=== PATIENT | male | born 1980 | race Caucasian/White ===

== ENCOUNTER 2024-08-20 13:23 | Emergency (ER) | payer MEDICAID ==
[~2024-08-20] VITALS: Ht 182.9 cm; Wt 70.8 kg
[2024-08-20 13:46] VITALS: TEMP 98.6
[2024-08-20] MEDS ORDERED: DOXY-224 PO (14:34)
[2024-08-20] MEDS ORDERED: HYDR-3965 PO (14:34)
[2024-08-20] MEDS: HYDROcodone/acetaminophen 10/325mg tab PO ONE (14:54)
[2024-08-20] MEDS: ketorolac trometh 15mg/ml vial 15 MG/ML ML IM ONE (14:55)
[2024-08-20] MEDS: LIDOcaine/epinephrine/tetracaine TOPICAL sol 3 ML syringe TOP ONE (14:55)
[2024-08-20 15:27] VITALS: BP 102/84; PULSE 96; RESP 16; O2SAT 100
== END 2024-08-20 15:33 | disposition home or self-care (01) ==
LOC: ER 13:24
DX: S41.152A Open bite of left upper arm, initial encounter (principal); Z88.5 Allergy status to narcotic agent; W54.0XXA Bitten by dog, initial encounter; Y93.89 Activity, other specified; Y92.89 Other specified places as the place of occurrence of the external cause; Y99.8 Other external cause status
CPT/HCPCS: 96372; 99283; J1885; J3490

== ENCOUNTER 2024-08-26 12:32 | Emergency (ER) | payer MEDICAID ==
[~2024-08-26] VITALS: Ht 185.4 cm; Wt 70.9 kg
[~2024-08-26 12:32] MED LIST: DOXY-224 PO; HYDR-3965 PO
[2024-08-26 12:33] VITALS: BP 140/116; PULSE 97; TEMP 98.4; O2SAT 99
[2024-08-26 12:59] LABS: BASOPHILS # (AUTO) 0.1 X10'3 (0-0.2); BASOPHILS % (AUTO) 0.7 % (0-1); EOSINOPHILS # (AUTO) 0.3 X10'3 (0-0.9); EOSINOPHILS % (AUTO) 3.9 % (0-6); HEMATOCRIT 47.2 % (42.0-52.0); HEMOGLOBIN 15.8 g/dl (14.0-17.9); LYMPHOCYTES # (AUTO) 1.4 X10'3 (1.1-4.8); LYMPHOCYTES % (AUTO) 18.9 % (21-51); MEAN CORPUSCULAR HEMOGLOBIN 32.6 PG (27.0-31.0); MEAN CORPUSCULAR HGB CONC 33.4 g/dL (33.0-36.5); MEAN CORPUSCULAR VOLUME 97.6 FL (78-98); MEAN PLATELET VOLUME 8.4 FL (7.4-10.4); MONOCYTES # (AUTO) 0.7 X10'3 (0-0.9); NEUTROPHILS # (AUTO) 4.9 X10'3 (1.8-7.7); NEUTROPHILS % (AUTO) 67.5 % (42-75); PLATELET COUNT 291 X10'3 (140-440); RED BLOOD COUNT 4.84 X10'6 (4.70-6.10); RED CELL DISTRIBUTION WIDTH 13.3 % (11.5-14.5); WHITE BLOOD COUNT 7.3 X10'3 (4.5-11.0)
[2024-08-26 13:06] LABS: BILIRUBIN,URINE NEGATIVE (Neg); CLARITY,URINE CLOUDY (Clear); COLOR,URINE YELLOW (Yellow); GLUCOSE, URINE NEGATIVE (Neg); KETONES,URINE NEGATIVE (Neg); LEUKOCYTE ESTERASE ,URINE NEGATIVE (Neg); NITRITES, URINE NEGATIVE (Neg); OCCULT BLOOD,URINE SMALL (Neg); PH,URINE 6.5 (4.8-8.0); PROTEIN,URINE 100 mg/dl (Neg)
[2024-08-26 13:28] LABS: UA COLLECTION TYPE CLN CATCH MIDSTREAM
[2024-08-26 13:31] LABS: ALANINE AMINOTRANSFERASE 251 U/L (12-78); ALBUMIN 3.8 G/DL (3.4-5.0); ALKALINE PHOSPHATASE 74 IU/L (46-116); ANION GAP 8 (8-16); ASPARTATE AMINO TRANSFERASE 145 U/L (10-37); BILIRUBIN,TOTAL 0.7 MG/DL (0.1-1.0); BLOOD UREA NITROGEN 14 MG/DL (7-18); BUN/CREATININE RATIO 16.7 (10.0-20.0); CALCIUM 9.2 MG/DL (8.5-10.1); CHLORIDE 105 MMOL/L (99-107); CREATININE 0.84 MG/DL (0.60-1.10); GLUCOSE 89 MG/DL (70-104); LIPASE 92 U/L (16-77); POTASSIUM 4.6 MMOL/L (3.5-5.1); SODIUM 144 MMOL/L (135-145); TOTAL CARBON DIOXIDE 31.2 MMOL/L (24-32); TOTAL PROTEIN 7.6 G/DL (6.4-8.2); eCRCL 114 ML/MIN; eGFR > 90 ML/MIN
[2024-08-26 13:37] LABS: AMORPHOUS PHOSPHATES 3+; BACTERIA,URINE FEW /HPF (Neg); SQUAMOUS EPITHELIAL CELL,UR NONE SEEN /LPF (FEW)
[2024-08-26] MEDS ORDERED: iohexol 300mg/ml 100ml inj. ONE (14:50)
[2024-08-26] MEDS: ondansetron/PF 4mg/2ml inj IV ONE (14:54)
[2024-08-26] MEDS: morphine 4 MG/ML inj SYRINge IV ONE (14:55)
[2024-08-26] MEDS: normal saline 1000ML IV soln IVB ONE (14:59)
--- NOTE | 2024-08-26 15:35 | RADIOLOGY REPORT ---
Exam: CT CT ABDOMEN PELVIS W/ IV CONTRAST History: abdominal pain with elevated alt >ast and lipase. alcoholism. Comparison Study: None available at time of dictation. Contrast: Type of contrast: Omni 300 Contrast injected: 100 mL Contrast wasted: 0 TECHNIQUE: A digital career guidance technician image was obtained. During the uneventful, intravenous administration of c ontrast material, multislice data acquisition was obtained through the abdomen and pelvis. The data s et was subsequently reconstructed into axial images. Images were reviewed on a work station using a c ombination of axial and multiplanar using a variety of window levels and settings. Radiation Dose Information: CT Dose: CTDI volume is 9.34 mGy. Dose-length product is 438.25 mGy*cm FINDINGS: Lung Bases: No acute or significant lung base finding. Normal heart size. No pleural or pericardial effusion. Liver: The liver is normal in size. No focal lesions. Normal hepatic vascular enhancement. Hepatic s teatosis Gallbladder and Biliary Tree: Unremarkable Spleen: Unremarkable Pancreas: The pancreas is normal in appearance without focal lesions or abnormal enhancement. Adrenal Glands: Unremarkable Kidneys: Kidneys demonstrate normal symmetric enhancement without focal lesions, calculi or hydroneph rosis. Bladder: Unremarkable Bowel: The stomach is grossly normal in appearance. Small bowel and colon are normal in caliber and d istribution. The appendix is not visualized; however, no secondary findings of acute appendicitis luisa ntified. Ascites: Absent Lymphadenopathy: No mesenteric, retroperitoneal or periportal lymphadenopathy. Abdominal Wall and Mesentery: Unremarkable. Vasculature: The visualized abdominal aorta is normal in size and caliber. Abdominal and pelvic vess els demonstrate normal enhancement. Pelvic Organs: Unremarkable Musculoskeletal: No aggressive focal bony lesions, acute fractures or dislocation. Soft tissues: Unremarkable. IMPRESSION: 1. Hepatic steatosis 2. No calcified gallstones 3. No nephrolithiasis or hydronephrosis 4. No CT findings of bowel obstruction All CT scans at this medical facility are performed using dose modulation techniques as appropriate t o a performed exam including the following: Automated exposure control was utilized; adjustment of th e MA and/or KV according to patient size; and use of iterative reconstruction technique. HS:Y
[2024-08-26] MEDS ORDERED: ONDA-103 PO (16:11)
[2024-08-26] MEDS ORDERED: PANT-47 PO (16:11)
--- NOTE | 2024-08-26 16:12 | Physician Documentation ---
History of Present Illness ~ Chief Complaint: Abdominal Pain w/vomiting Stated Complaint: ABD PAIN AND RASH Time Seen by MD: 13:51 OK to notify your PCP?: Yes Primary Medical Doctor: none Source: patient Mode of Arrival: POV Exam Limitations: no limitations HPI 43-year-old male with chief complaint abdominal pain that has in his epigastric area started this morning. States he has been trying to wean himself off of al cohol in his been cutting pack over the past week. Symptoms started after he was followed by the really hard. He thinks he might have decrease his alcohol too quickly. He has not had any hallucinations, delirium, seizures. Medication Reconciliation Allergies: Coded Allergies: meperidine (Unverified Allergy, Intermediate, CONOR INFLAMATION, 08/20/24) Scheduled Doxycycline Hyclate (Doxycycline Hyclate), 1 CAP PO Q12H Pantoprazole Sodium (PROTONIX tablet), 1 TAB PO DAILY Scheduled PRN Ondansetron HCl (Ondansetron HCl), 1 TAB PO Q6H PRN PRN for nausea/vomiting Discontinued Medications Hydrocodone Bit/Acetaminophen 5/325 MG (Paragon 5/325 MG), 1 TAB PO TID PRN PRN for pain Discontinued Reason: Auto Discontinued Past Medical History Smoking Status: Current every day smoker Review of Systems All Other Systems at this time: Reviewed and Negative Physical Exam Vital Signs: Temperature: 98.4, Source: Temporal, Heart Rate: 97, Respiratory Rate: 17, BP: 140/116, Pulse Oximetry: 99, Weight: 70.900 Physical Exam GENERAL: Alert, no acute distress. HEENT: NCAT, EOMI, PERRL, normal oropharynx, moist oral mucosa. NECK: Supple, trachea midline. CARDIAC: Regular rate and rhythm, no murmurs, rubs, or gallops. Equal distal p ulses. No lower extremity edema, cap refill less than 2 seconds. RESPIRATORY: Equal breath sounds, clear to auscultation bilaterally, no respiratory distress. GASTROINTESTINAL: Non distended, soft, EPIGASTRIC TTP, No guarding or rebound. MUSCULOSKELETAL: Normal range of motion, nontender, no swelling. Normal gait. NEUROLOGICAL: Awake, alert, and oriented x 3. SKIN: Warm/dry, no pallor, no rash. PSYCH: Alert and appropriate. Affect congruent with mood. Speech is clear. Good eye contact. Progress Results/Orders Results/Orders Orders - NYASIA ANAND Ct Abdomen Pelvis (08/26/24 14:17) Completed Orders - NYASIA ANAND Morphine 4mg/Ml Inj. (Morphine Inj.) (08/26/24 14:20) Ondansetron Inj. (Zofran 4mg/2ml Vial) (08/26/24 14:20) Normal Saline 1000ml (Sodium Chloride 10 (08/26/24 14:20) Ct Abdomen Pelvis (08/26/24 14:17) Iohexol 300mg/Ml 100ml Inj. (Omnipaque-3 (08/26/24 14:50) Hydrocodone/Apap 10/325 (Paragon 10/325mg (08/26/24 16:10) Medications Received in ER Medications (Trade) Dose Ordered Sig/Jose Route PRN Reason Start Time Stop Time Status Last Admin Dose Admin (morphine inj.) 6 mg ONCE ONCE IV 08/26/24 14:20 08/26/24 14:23 DC 08/26/24 14:55 6 MG (Zofran 4mg/2ml vial) 4 mg ONCE ONCE IV 08/26/24 14:20 08/26/24 14:23 DC 08/26/24 14:54 4 MG (sodium chloride 1000ml IV soln) 1,000 ml ONCE ONCE IVB 08/26/24 14:20 08/26/24 14:23 DC 08/26/24 14:59 1,000 ML (Paragon 10/325mg tab) 1 tab ONCE ONCE PO 08/26/24 16:10 08/26/24 16:11 DC 08/26/24 16:35 1 TAB Vital Signs 08/26/24 08/26/24 08/26/24 08/26/24 12:33 14:55 16:04 16:35 Temp 98.4 Pulse 97 Resp 15 17 18 16 B/P (MAP) 140/116 Pulse Ox 99 Laboratory Tests Test 08/26/24 12:38 08/26/24 12:51 Urine Specimen Description Cln catch midstream Urine Color Yellow Urine Clarity Cloudy Urine pH 6.5 Urine Specific Goldsmith 1.025 Urine Protein 100 H Urine Glucose (UA) Negative Urine Ketones Negative Urine Occult Blood Small Urine Nitrite Negative Urine Bilirubin Negative Urine Urobilinogen 1.0 Urine Leukocyte Esterase Negative Urine RBC 3-10 Urine WBC 5-10 H Urine Squamous Epithelial Cells None seen Urine Amorphous Phosphates 3+ Urine Bacteria Few Urine Culture Indicated Indicated Volume Urine Centrifuged 10 ml Urine Comment White Blood Count 7.3 Red Blood Count 4.84 Hemoglobin 15.8 Hematocrit 47.2 Mean Corpuscular Volume 97.6 Mean Corpuscular Hemoglobin 32.6 H Mean Corpuscular Hemoglobin Concent 33.4 Red Cell Distribution Width 13.3 Platelet Count 291 Mean Platelet Volume 8.4 Neutrophils (%) (Auto) 67.5 Lymphocytes (%) (Auto) 18.9 L Monocytes (%) (Auto) 9.0 Eosinophils (%) (Auto) 3.9 Basophils (%) (Auto) 0.7 Neutrophils # (Auto) 4.9 Lymphocytes # (Auto) 1.4 Monocytes # (Auto) 0.7 Eosinophils # (Auto) 0.3 Basophils # (Auto) 0.1 CBC Comment Sodium Level 144 Potassium Level 4.6 Chloride Level 105 Carbon Dioxide Level 31.2 Anion Gap 8 Blood Urea Nitrogen 14 Creatinine 0.84 Estimated GFR/1.73 m2 > 90 BUN/Creatinine Ratio 16.7 Glucose Level 89 Calcium Level 9.2 Total Bilirubin 0.7 Aspartate Amino Transf (AST/SGOT) 145 H Alanine Aminotransferase (ALT/SGPT) 251 H Alkaline Phosphatase 74 Total Protein 7.6 Albumin 3.8 Globulin 3.8 Albumin/Globulin Ratio 1.0 L Lipase 92 H Chemistry Comments Microbiology Date/Time Source Procedure Growth Status 08/26/24 13:38 Urine Clean Catch Midstream Urine Culture - Preliminary Culture received. Resulted Medical Decision Making Diff Dx Pain:Considerations: Include: AAA, Angina/AK, Aortic dissection, Appendicitis, Bowel obstruction, Cholangitis, Cholecystitis, Cholelithasis, Constipation, Diverticular disease, Esophageal rupture, Esophagitis, Gastritis, Gastroenteritis, GI hemorrhage, Hepatitis, Hernia, Inflammatory BD, Ischemic bowel, Mass, Pancreatitis, Porphyria, PUD, Testicular torsion, Trauma, intraabdominal, Urinary obstruction, Urinary tract infection, Urolithiasis Additional Comments NO EVIDENCE FOR PANCREATITIS ON IMAGING, PATIENT'S PAIN RESOLVED COMPLETELY AND WAS EATING LICORICE ROPES PRIOR TO DISCHARGE. Departure Time of Disposition: 18:53 Disposition: 01 HOME / SELF CARE / HOMELESS Impression: Primary Impression: Abdominal pain Qualified Codes: R10.13 - Epigastric pain Additional Impressions: Gastritis Qualified Codes: K29.00 - Acute gastritis without bleeding Alcoholism Condition: Stable Discharge Instructions: Abdominal Pain (Nonspecific) Additional Instructions: If worsening of pain return to the ER otherwise recommend follow up with your primary care provider for possible upper endoscopy to assess your stomach if the pain persists. If you have any new concerns such as chest pain, sob then return to ER Referrals: NO PRIMARY CARE PROVIDER (PCP) Prescriptions Ondansetron HCl (Ondansetron HCl) 4 Mg Tablet 1 TAB PO Q6H PRN PRN for nausea/vomiting, #10 TAB 0 Refills Prov: NYASIA ANAND 08/26/24 Pantoprazole Sodium (PROTONIX tablet) 40 Mg Tablet.dr 1 TAB PO DAILY for 30 Days, #30 TAB 0 Refills Prov: NYASIA ANAND 08/26/24 Education Educated: Patient Educated regarding: diagnosis, treatment, need for follow up Signature Scribe Signature: x Attestation: NYASIA Garcia Aug 26, 2024 16:12
[2024-08-26 16:35] VITALS: RESP 16
[2024-08-26] MEDS: HYDROcodone/acetaminophen 10/325mg tab PO ONE (16:35)
== END 2024-08-26 16:42 | disposition home or self-care (01) ==
LOC: ER 12:33
DX: K29.70 Gastritis, unspecified, without bleeding (principal); F17.200 Nicotine dependence, unspecified, uncomplicated; Z88.5 Allergy status to narcotic agent
CPT/HCPCS: 36415; 74177; 80053; 81001; 83690; 85025; 87088; 96361; 96374; 96375; 99285; J2270; J2405; J7030; Q9967

== ENCOUNTER 2024-09-16 17:20 | Emergency (ER) | payer MEDICAID ==
[~2024-09-16] VITALS: Ht 182.9 cm; Wt 72.3 kg
[~2024-09-16 17:20] MED LIST changes: -DOXY-224 PO; -HYDR-3965 PO; +ONDA-103 PO; +PANT-47 PO
[2024-09-16] MEDS: LORazepam 2 mg/ml vial IV ONE (18:26)
[2024-09-16] MEDS: diazepam 5mg tablet PO ONE ×2 (18:53→19:57)
[2024-09-16 19:22] LABS: BASOPHILS % (AUTO) 0.7 % (0-1); EOSINOPHILS # (AUTO) 0.2 X10'3 (0-0.9); EOSINOPHILS % (AUTO) 2.7 % (0-6); HEMATOCRIT 42.4 % (42.0-52.0); HEMOGLOBIN 14.4 g/dl (14.0-17.9); LYMPHOCYTES % (AUTO) 26.1 % (21-51); MEAN CORPUSCULAR HEMOGLOBIN 32.9 PG (27.0-31.0); MEAN CORPUSCULAR VOLUME 96.5 FL (78-98); MEAN PLATELET VOLUME 9.4 FL (7.4-10.4); MONOCYTES # (AUTO) 0.9 X10'3 (0-0.9); MONOCYTES % (AUTO) 11.3 % (2-12); NEUTROPHILS # (AUTO) 4.4 X10'3 (1.8-7.7); NEUTROPHILS % (AUTO) 59.2 % (42-75); PLATELET COUNT 292 X10'3 (140-440); RED BLOOD COUNT 4.39 X10'6 (4.70-6.10); RED CELL DISTRIBUTION WIDTH 13.5 % (11.5-14.5); WHITE BLOOD COUNT 7.5 X10'3 (4.5-11.0)
[2024-09-16 19:35] LABS: ALANINE AMINOTRANSFERASE 185 U/L (12-78); ALBUMIN 3.6 G/DL (3.4-5.0); ALKALINE PHOSPHATASE 69 IU/L (46-116); ANION GAP 11 (8-16); ASPARTATE AMINO TRANSFERASE 97 U/L (10-37); BILIRUBIN,TOTAL 0.6 MG/DL (0.1-1.0); BLOOD UREA NITROGEN 12 MG/DL (7-18); CALCIUM 9.2 MG/DL (8.5-10.1); CHLORIDE 104 MMOL/L (99-107); CREATININE 0.75 MG/DL (0.60-1.10); ETHANOL 70 MG/DL (<10); GLUCOSE 81 MG/DL (70-104); POTASSIUM 3.5 MMOL/L (3.5-5.1); SODIUM 142 MMOL/L (135-145); TOTAL CARBON DIOXIDE 26.6 MMOL/L (24-32); TOTAL PROTEIN 7.1 G/DL (6.4-8.2); eCRCL 130 ML/MIN; eGFR > 90 ML/MIN
--- NOTE | 2024-09-16 19:43 | Physician Documentation ---
History of Present Illness ~ Chief Complaint: ETOH Stated Complaint: DETOXING FROM ALCOHOL Time Seen by MD: 19:38 Primary Medical Doctor: none Mode of Arrival: Other HPI 43 year old male with long history of alcoholism, drinks approximately one fifth of hard alcohol per day for many years. Reports want to quit alcohol and wishing to do so at home. Denies seizure history. Reports nausea. Tetanus within 5 years?: No Medication Reconciliation Allergies: Coded Allergies: meperidine (Unverified Allergy, Intermediate, CONOR INFLAMATION, 08/20/24) Scheduled Pantoprazole Sodium (PROTONIX tablet), 1 TAB PO DAILY Scheduled PRN Ondansetron HCl (Ondansetron HCl), 1 TAB PO Q6H PRN PRN for nausea/vomiting Review of Systems All Other Systems at this time: Reviewed and Negative Physical Exam Vital Signs: RN Vital Signs have been reviewed: Yes, Temperature: 98.9, Source: Oral, Heart Rate: 107, Respiratory Rate: 14, BP: 151/101, Pulse Oximetry: 98, Weight: 72.300 Physical Exam HEENT: PERRL, moist oral mucosa, EOMI Pulmonary: No respiratory distress Cardiac: regular tachycardia, no murmur, rub or gallop MSK: no deformity Skin: w/d/i, no rash Neuro: alert, nonfocal Psych: normal affect Progress Results/Orders Results/Orders Completed Orders - WESTON OGDEN MD Diazepam Tablet (Valium Tablet) (09/16/24 18:45) Medications Received in ER Medications (Trade) Dose Ordered Sig/Jose Route PRN Reason Start Time Stop Time Status Last Admin Dose Admin (Ativan inj) 1 mg ONCE ONCE IV 09/16/24 17:55 09/16/24 17:59 DC 09/16/24 18:26 1 MG (Valium tablet) 10 mg ONCE ONCE PO 09/16/24 18:45 09/16/24 18:50 DC 09/16/24 18:53 10 MG Vital Signs 09/16/24 09/16/24 17:23 18:40 Temp 98.9 Pulse 107 Resp 18 14 B/P (MAP) 151/101 Pulse Ox 98 Laboratory Tests Test 09/16/24 17:45 White Blood Count 7.5 Red Blood Count 4.39 L Hemoglobin 14.4 Hematocrit 42.4 Mean Corpuscular Volume 96.5 Mean Corpuscular Hemoglobin 32.9 H Mean Corpuscular Hemoglobin Concent 34.0 Red Cell Distribution Width 13.5 Platelet Count 292 Mean Platelet Volume 9.4 Neutrophils (%) (Auto) 59.2 Lymphocytes (%) (Auto) 26.1 Monocytes (%) (Auto) 11.3 Eosinophils (%) (Auto) 2.7 Basophils (%) (Auto) 0.7 Neutrophils # (Auto) 4.4 Lymphocytes # (Auto) 2.0 Monocytes # (Auto) 0.9 Eosinophils # (Auto) 0.2 Basophils # (Auto) 0.0 CBC Comment Sodium Level 142 Potassium Level 3.5 Chloride Level 104 Carbon Dioxide Level 26.6 Anion Gap 11 Blood Urea Nitrogen 12 Creatinine 0.75 Estimated GFR/1.73 m2 > 90 BUN/Creatinine Ratio 16.0 Glucose Level 81 Calcium Level 9.2 Total Bilirubin 0.6 Aspartate Amino Transf (AST/SGOT) 97 H Alanine Aminotransferase (ALT/SGPT) 185 H Alkaline Phosphatase 69 Total Protein 7.1 Albumin 3.6 Globulin 3.5 Albumin/Globulin Ratio 1.0 L Chemistry Comments Ethyl Alcohol Level 70 H Medical Decision Making Findings 43 year old male with alcohol withdrawal syndrome. Long discussion regarding need for addiction medicine follow up and I will prescribe valium 10mg tablets and naltrexone to help him at home. Dose here and significant improvement in symptoms. Return precautions discussed. Differential Dx:Considerations: Include: Intoxication-Alcohol, Intoxication- Other drug, Personality disorder, Substance abuse disorder, Alcohol withdrawl syndrom, Encephalopathy, Hepatitis, Medically stable Departure Disposition: 01 HOME / SELF CARE / HOMELESS Impression: Primary Impression: Alcohol withdrawal syndrome Additional Impression: Alcohol use disorder, severe, dependence Condition: Stable Discharge Instructions: Alcohol Use Disorder Referrals: NO PRIMARY CARE PROVIDER (PCP) Prescriptions Naltrexone Hcl (Naltrexone Hcl) 50 Mg Tablet 50 MG PO DAILY for 90 Days, #90 TAB Prov: WESTON OGDEN MD 09/16/24 Diazepam (Diazepam) 10 Mg Tablet 1 TAB PO TID PRN PRN for withdrawal symptoms for 30 Days, #90 TAB 0 Refills Prov: WESTON OGDEN MD 09/16/24 Education Educated: Patient Educated regarding: diagnosis, treatment, prognosis, need for follow up Signature Scribe Signature: . Attestation: . WESTON OGDEN MD September 16, 2024 19:43
[2024-09-16] MEDS ORDERED: NALT50TA5 PO (19:45)
[2024-09-16] MEDS ORDERED: DIAZ10TA4 PO (19:45)
[2024-09-16 19:49] VITALS: BP 148/98; PULSE 101; RESP 16; TEMP 98.3; O2SAT 99
--- NOTE | 2024-09-18 08:16 | ELECTROCARDIOGRAPH REPORT ---
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
== END 2024-09-16 19:58 | disposition home or self-care (01) ==
LOC: ER 17:21
DX: F10.239 Alcohol dependence with withdrawal, unspecified (principal); Z88.5 Allergy status to narcotic agent; Y90.9 Presence of alcohol in blood, level not specified
CPT/HCPCS: 36415; 80053; 80320; 85025; 93005; 96374; 99284; J2060; J7030

== ENCOUNTER 2024-11-25 09:34 | Emergency (ER) | payer MEDICAID ==
[~2024-11-25] VITALS: Ht 182.9 cm; Wt 72.7 kg
[~2024-11-25 09:34] MED LIST changes: +DIAZ10TA4 PO; +NALT50TA5 PO
[2024-11-25 09:38] VITALS: TEMP 98.7
--- NOTE | 2024-11-25 09:47 | Physician Documentation ---
History of Present Illness Chief Complaint: Flank Pain Stated Complaint: KIDNEY COMPLICATIONS Time Seen by MD: 09:45 Primary Medical Doctor: NONE Source: patient Mode of Arrival: POV Exam Limitations: no limitations HPI 44-year-old male states that he has had history of chronic kidney disease and that his kidney function was at 60% and then later at 30% and he started approximately two days ago having right flank pain concerned that is his kidney. Patient does have an appointment with the [facility]/primary care provider on . States his urine is dark. No nausea vomiting diarrhea Medication Reconciliation Allergies: Coded Allergies: meperidine (Unverified Allergy, Intermediate, CONOR INFLAMATION, 11/25/24) Scheduled Ciprofloxacin HCl (Cipro), 1 TAB PO Q12H Naltrexone Hcl (Naltrexone Hcl), 50 MG PO DAILY Pantoprazole Sodium (PROTONIX tablet), 1 TAB PO DAILY Scheduled PRN Diazepam (Diazepam), 1 TAB PO TID PRN PRN for withdrawal symptoms Ondansetron HCl (Ondansetron HCl), 1 TAB PO Q6H PRN PRN for nausea/vomiting Ondansetron HCl (Ondansetron HCl), 1 TAB PO TID PRN for nausea/vomiting Discontinued Medications Hydrocodone Bit/Acetaminophen (Hydrocodone-Apap 10-325 Tablet), 1 TAB PO TID PRN PRN for pain Discontinued Reason: Auto Discontinued Metronidazole* (Flagyl*), 1 TAB PO Q8H Discontinued Reason: Auto Discontinued Past Medical History Past Medical History: No Pertinent History, Kidney Stones Drug Use: none Lives with: Spouse Lives In: Assisted Care Review of Systems All Other Systems at this time: Reviewed and Negative Genitourinary: Reports: see HPI Physical Exam Vital Signs: Temperature: 98.7, Source: Oral, Heart Rate: 91, Respiratory Rate: 20, BP: 145/99, Pulse Oximetry: 96, Weight: 72.730 Physical Exam General: Alert, no apparent distress. HEENT: PERRL, EOMI, no injection, moist mucous membranes. Neck: Full range of motion. Respiratory: Lungs clear, no respiratory distress. Chest: No accessory muscle use. Cardiovascular: Regular rate and rhythm, no murmurs. Gastrointestinal: Soft, nontender, nondistended. Bowels sounds present. Tenderness to the right Extremities: Normal range of motion, no deformity. Neurologic: Oriented x4. Psychiatric: Normal mood and affect. Skin: Normal color, warm and dry. No edema, no ecchymosis. Progress Results/Orders Results/Orders Orders - ELIZA FISCHER NP Urinalysis, Cult If Indicated (11/25/24 09:42) Cbc/Diff (11/25/24 09:42) BMP (11/25/24 09:42) Lipase (11/25/24 09:42) CMP (11/25/24 09:42) Vital Signs 11/25/24 09:38 Temp 98.7 Pulse 91 Resp 20 B/P (MAP) 145/99 Pulse Ox 96 Medical Decision Making Findings Patient's labs are unremarkable for any significant findings including GFR being 90. Patient's urine does show leukocytes and indicates culture. Differentials include pyelonephritis, bladder infection causing the right-sided flank pain. IV fluids Toradol happened prescribed as well as oral antibiotics. Patient will follow up with [facility]. Patient's vital signs are reassuring as well. Departure Time of Disposition: 11:23 Disposition: HOME / SELF CARE / HOMELESS Impression: Primary Impression: Acute urinary tract infection Condition: Stable Discharge Instructions: Urinary Tract Infection, Adult Additional Instructions: There is some bacteria in your urine and your kidney function is within normal range. GFR or your filtration rate is 90 or above. Take antibiotics for the urinary tract infection and follow up with the [facility] on Wednesday. Referrals: NO PRIMARY CARE PROVIDER (PCP) Prescriptions Ciprofloxacin HCl (Cipro) 500 Mg Tablet 1 TAB PO Q12H for 7 Days, #14 TAB Prov: ELIZA FISCHER NP 11/25/24 Education Educated: Patient Educated regarding: diagnosis, treatment, need for follow up Signature Scribe Signature: No scribe Attestation: The note accurately reflects work and decisions made by me.Eliza Fischer - [employer]CTION MGR 11/25/24 09:46 ELIZA FISCHER NP Nov 25, 2024 09:47
[2024-11-25 10:09] LABS: LEUKOCYTE ESTERASE ,URINE TRACE (Neg); NITRITES, URINE NEGATIVE (Neg); OCCULT BLOOD,URINE TRACE-INTACT (Neg)
[2024-11-25 10:13] LABS: UA COLLECTION TYPE CLN CATCH MIDSTREAM
[2024-11-25 10:14] LABS: MUCUS STRANDS NONE SEEN /LPF (Neg); SQUAMOUS EPITHELIAL CELL,UR NONE SEEN /LPF (FEW)
[2024-11-25 10:29] LABS: MEAN PLATELET VOLUME 9.2 FL (7.4-10.4); RED CELL DISTRIBUTION WIDTH 13.5 % (11.5-14.5)
[2024-11-25 10:43] LABS: CREATININE 0.84 MG/DL (0.60-1.10); TOTAL CARBON DIOXIDE 27.3 MMOL/L (24-32); eCRCL 115 ML/MIN; eGFR > 90 ML/MIN
[2024-11-25] MEDS: ciprofloxacin 250mg tablet PO ONE (11:16)
[2024-11-25] MEDS: ketorolac trometh 30MG/ML vial 30 MG/ML VIAL IV ONE (11:16)
[2024-11-25] MEDS: normal saline 1000ML IV soln IVB ONE (11:17)
[2024-11-25] MEDS ORDERED: CIPR-259 PO (11:24)
[2024-11-25 11:26] VITALS: BP 121/89; PULSE 75; RESP 12; O2SAT 98
== END 2024-11-25 12:15 | disposition home or self-care (01) ==
LOC: ER 09:34
DX: N39.0 Urinary tract infection, site not specified (principal); Z88.5 Allergy status to narcotic agent; Z79.899 Other long term (current) drug therapy; Z87.442 Personal history of urinary calculi
CPT/HCPCS: 36415; 80053; 81001; 83690; 85025; 87088; 96361; 96374; 99283; J1885; J7030